=== PATIENT | female | born 1995 | race African-American/Black ===

== ENCOUNTER 2025-04-01 08:54 | Observation (INO) | payer SELFPAY ==
[2025-04-01 09:57] LABS: ABSOLUTE IMMATURE GRANULOCYTES 0.05 x10^3/uL (0.0-0.031); BASOPHILS # 0.06 x10^3/uL (0.01-0.08); EOSINOPHIL % 3.6 % (0.7-5.8); EOSINOPHILS # 0.32 x10^3/uL (0.04-0.36); MCHC 30.2 g/dl (32.2-35.5); MEAN CELL VOLUME 91.6 fl (79.4-94.8); MEAN PLT VOLUME 11.2 fl (9.4-12.3); MONOCYTE # 0.82 x10^3/uL (0.24-0.86); MONOCYTE % 9.3 % (4.7-12.5); RDW 17.2 % (12.1-16.8)
[2025-04-01] MEDS ORDERED: CALCIUM GLUC IN NACL, ISO-OSM 1 GM/50 ML BAG IVPB ONE (10:01)
[2025-04-01] MEDS: CALCIUM GLUC IN NACL, ISO-OSM 1 GM/50 ML BAG IVPB ONE (10:04)
[2025-04-01 11:47] LABS: CO2 18 mmol/L (21-32); GLUCOSE,RANDOM 201 mg/dL (74-106)
[2025-04-01 11:50] LABS: SGOT/AST 17 U/L (15-37); SGPT/ALT 21 U/L (13-61)
[2025-04-01 11:52] LABS: ALK PHOS 207 U/L (45-117); TOT PROT 6.8 g/dl (6.4-8.2)
[2025-04-01] MEDS: HEPARIN NA (PORCINE) 5,000 UNITS/ML 1ML VIAL IVPUSH ONE (13:35)
[2025-04-01] MEDS: HEPARIN NA (PORCINE) 5,000 UNITS/ML 1ML VIAL IVPUSH SCH (14:15)
[2025-04-01 14:23] LABS: HCV DIAGNOSTIC IN-HOUSE W/RFLX NON-REACTIVE (NONREACTIVE)
[2025-04-01 14:25] LABS: HIV INTERPRETATION NEGATIVE (NEGATIVE)
[2025-04-01] MEDS ORDERED: SODIUM CHLORIDE 250 ML IV PRN (15:05)
[2025-04-01] MEDS ORDERED: HEPARIN NA (PORCINE) 5,000 UNITS/ML 1ML VIAL IVPUSH SCH (15:15)
[2025-04-01] MEDS: EPOETIN ALFA-EPBX 4,000 UNIT/ML VIAL SQ ONE (15:33)
[2025-04-01 16:00] VITALS: RESP 18
[2025-04-01 16:15] LABS: HEPATITIS B SURF AG NON-MATERN NON-REACTIVE (NONREACTIVE)
[2025-04-01 16:50] VITALS: BP 180/109; PULSE 102
[2025-04-01 17:22] VITALS: TEMP 98.8; BMI 29.2
[2025-04-01 17:38] LABS: CREATININE 20.6 mg/dL (0.55-1.3)
[2025-04-01] MEDS: INSULIN ASPART SLIDING SCALE (NOVOLOG) 1 VIAL SQ SCH (17:41)
[2025-04-01] MEDS: SEVELAMER CARBONATE 800 MG TAB (FP) PO SCH (17:41)
[2025-04-01] MEDS ORDERED: HEPARIN NA (PORCINE) 5,000 UNITS/ML 1ML VIAL SQ SCH ×2 (20:00→22:00)
[2025-04-01] MEDS ORDERED: ATORVASTATIN CA 40 MG TABLET (FP) PO SCH (22:00)
[2025-04-01] MEDS ORDERED: CARVEDILOL 25 MG TABLET (FP) PO SCH (22:00)
[2025-04-02] MEDS ORDERED: amLODIPine BESYLATE 10 MG TABLET (FP) PO SCH (10:00)
[2025-04-02] MEDS ORDERED: CLOPIDOGREL BISULFATE 75 MG TABLET (FP) PO SCH (10:00)
== END 2025-04-01 19:48 | disposition home or self-care (01) ==
LOC: JER 08:54 → JERBED 13:23 → J5S 17:01
PROVIDERS: ADMIT Internal Medicine; ATTEND Internal Medicine
DX: E87.79 Other fluid overload (principal); N17.8 Other acute kidney failure; E87.5 Hyperkalemia; I12.0 Hypertensive chronic kidney disease with stage 5 chronic kidney disease or end stage renal disease; E11.22 Type 2 diabetes mellitus with diabetic chronic kidney disease; N18.6 End stage renal disease; E78.5 Hyperlipidemia, unspecified; Z99.2 Dependence on renal dialysis; Z86.73 Personal history of transient ischemic attack (TIA), and cerebral infarction without residual deficits; Z79.4 Long term (current) use of insulin
CPT/HCPCS: 96360; 96372; G0257; 36415; 71045-TC-FY; 80053; 85025; 86704; 86705; 86803; 87340; 87389; 87517; 93005; 93010; 99291; G0378; Q5106